=== PATIENT | male | born 1960 | race Caucasian/White ===

== ENCOUNTER 2021-04-28 09:55 | Day surgery (SDC) | payer BC ==
[2021-04-28 09:47] LABS: Absolute Lymphocytes (CBC) 2.2 K/uL (0.7-4.9); Hematocrit 41.8 % (39.6-49.0); Lymphocytes % 33.9 % (15.3-44.8); MPV 7.5 fL (7.6-11.3); RBC Red Blood Cell Count 4.94 M/uL (4.33-5.43)
[2021-04-28 09:50] LABS: Protime INR 1.02
[2021-04-28 09:59] LABS: BUN Blood Urea Nitrogen 16 mg/dL (7-18); Bicarbonate 28 mmol/L (21-32); Glucose Level 96 mg/dL (74-106); Potassium 4.3 mmol/L (3.5-5.1); Sodium Level 141 mmol/L (136-145)
--- NOTE | 2021-04-28 10:08 | RAD REPORT ---
EXAM DESCRIPTION: RAD - Chest Pa And Lat (2 Views) - 04/28/2021 9:54 am CLINICAL HISTORY: PreOp COMPARISON: Elbow Left Wo Cont dated 04/21/2021 FINDINGS: Lines: None. Lungs: Prominent lung markings medially within the right lung base favored chronic though no priors a re available for comparison. No edema identified. No consolidative airspace disease. Pleural: No significant pleural effusions or pneumothorax. Cardiac: The heart size is within normal limits. Bones: No acute fractures. Other: IMPRESSION: No definite acute cardiopulmonary disease.
[2021-04-28] MEDS ORDERED: Ringers Lactate 1,000 ML IV ONE (10:59)
[2021-04-28] MEDS ORDERED: CEFAZOLIN/SWI 1gm 1 GM/10 ML SYR ONE (11:00)
[2021-04-28] MEDS ORDERED: BUPIVACAINE 0.5% PF 10 ML VIAL ONE (11:36)
[2021-04-28] MEDS ORDERED: KETOROLAC 30 MG/ML INJ ONE (11:59)
[2021-04-28] MEDS ORDERED: MIDAZOLAM HCL 2 MG/2 ML INJ ONE (11:59)
[2021-04-28] MEDS ORDERED: LIDOCAINE 2% MPF 5 ML VIAL ONE (11:59)
[2021-04-28] MEDS ORDERED: ONDANSETRON 4 MG/2 ML VIAL ONE (11:59)
[2021-04-28] MEDS ORDERED: dexAMETHasone 10 MG/ML VIAL ONE (11:59)
[2021-04-28] MEDS ORDERED: FENTANYL CITR 100 MCG/2 ML ONE ×2 (11:59→14:09)
[2021-04-28] MEDS ORDERED: propofoL 200 MG/20 ML VIAL IV ONE (11:59)
[2021-04-28] MEDS ORDERED: ROCURONIUM 50 MG/5 ML VIAL IV ONE (12:00)
[2021-04-28] MEDS ORDERED: EPHEDRINE SULF 50 MG/ML VIAL ONE (13:11)
[2021-04-28] MEDS ORDERED: GLYCOPYRROLATE 0.2 MG/ML SYR ONE (13:11)
[2021-04-28] MEDS: Ringers Lactate 1,000 ML IV ONE ×2 (13:23→13:47)
--- NOTE | 2021-04-28 14:38 | EKG ---
Test Date: 2021-04-28 Test Time: 09:01:26 [employer]ater: ANDRAE MEASUREMENT RESULTS: Intervals: Rate: 52 CT: 152 QRSD: 92 QT: 448 QTc: 416 [place]: P: 5 CT: 152 QRS: 75 T: 46 INTERPRETIVE STATEMENTS: Sinus bradycardia Otherwise normal ECG No previous ECG available for comparison Electronically Signed On 04-28-21 14:38:22 CDT by Jake Moreno
--- NOTE | 2021-04-28 15:13 | P.BOP ---
Preoperative diagnosis: left distal biceps tendon rupture Postoperative diagnosis: same Primary procedure: left distal biceps tendon repair Feeder Driver: NONE,NONE Estimated blood loss: 10 cc Specimen: none Findings: see dictation Anesthesia: General Complications: None Implants: Arthrex biceps button with 7 x 10 mm biotenodesis screw Fluids & blood products: per anesthesia record Transferred to: Recovery Room Condition: Good
[2021-04-28 15:52] VITALS: BP 120/63; TEMP 97.9; O2SAT 97
--- NOTE | 2021-04-28 16:03 | RAD REPORT ---
EXAM DESCRIPTION: RAD - Elbow Left 2 View - 04/28/2021 3:34 pm CLINICAL HISTORY: s/p biceps tendon repair Pain COMPARISON: Elbow Left Wo Cont dated 04/21/2021 FINDINGS: Small metallic clip is seen near the radial tuberosity. Mild soft tissue swelling postsurg ical subcutaneous gas is present. No unexpected immediate postoperative finding.
[2021-04-28] MEDS ORDERED: HYDROCODONE/APAP 5/325 MG TAB ONE (16:23)
--- NOTE | 2021-04-28 19:23 | RAD REPORT ---
EXAM DESCRIPTION: RAD - Fluoroscopy <1 Hour - 04/28/2021 7:11 pm CLINICAL HISTORY: LT BICEP REPAIR COMPARISON: No comparisons FINDINGS: Fluoroscopy time: 0.1 minutes
--- NOTE | 2021-04-29 23:04 | OP ---
Date of Procedure: 04/28/2021 Surgeon: Russell Reed MD Preoperative Diagnosis: Left distal biceps tendon rupture. Postoperative Diagnosis: Left distal biceps tendon rupture. Procedure Performed: Left distal biceps tendon repair. Anesthesia: General endotracheal. Fluids: Per Anesthesia record. Estimated Blood Loss: 10 cc. Complications: None. Implant: An Arthrex BicepsButton with a 7 x 10 mm Bio-Tenodesis screw. Indication For Procedure: Adam is a 60-year-old male who presents to clinic with signs, symptoms, and MRI findings consistent with a left distal biceps tendon rupture. I discussed with the patient at length risks and benefits associated with operative and nonoperative treatment. He expressed understanding and elected to proceed with the operative treatment. Description Of Procedure: After informed consent was obtained, the patient was identified in the preoperative holding area. The left upper extremity was marked. The patient was then brought back to the operating room, returned to the operating table in the supine fashion, placed under general endotracheal anesthesia. The left upper extremity was then prepped and draped in usual sterile fashion. A time-out was initiated. The correct patient and procedure were confirmed and identified. The patient did receive his preoperative prophylactic antibiotics. The left upper extremity was then prepped and draped in usual sterile fashion. A time-out was initiated. Correct patient and procedure were confirmed and identified. Approximately an 8 cm curvilinear incision was made beginning at the radial tuberosity and coming up medially just proximal to the antecubital fossa. Dissection was first taken down evaluating the damaged biceps tendon. The patient was noted to have significant fraying of the distal biceps tendon. The tendon was partially intact and attached to the bicipital tuberosity. These remaining fibers were then released using an elevator as well as Metzenbaum. A crossing vein was noted at the area of insertion and it was tied using a silk tie and a small branch was released to aid with exposure. The distal tendon stump was then debrided for any unhealthy tissue. It was noted that there was minimal tendon stump available secondary to the diseased aspect of the distal tendon. The distal tendon stump was then whipstitched using a FiberLoop over a course of 2.5 cm. It was marked for about 1 cm distal at the end and a guide pin was then placed on the radial tuberosity and confirmed using fluoroscopy. A guide pin was then passed through the proximal radius in a bicortical fashion with keeping the forearm in supination to protect the PIN at all times. It was just followed by 7.5 mm reamer after this tendon was measured. An Arthrex BicepsButton was then placed over the sutures and passed through the far cortex and flipped. The suture was then pulled to dock the tendon into the socket. There was good overall fit of the biceps tendon within the socket of the radial tuberosity. To add additional fixation, a 7 x 10 mm Bio-Tenodesis screw was placed with good overall bite. The suture was then tied over the screw and cut. The wound was then irrigated thoroughly with normal saline. The patient was noted to be able to bring the arm into 70 degrees off extension. Subcutaneous tissue was approximated using a 2-0 Vicryl. Skin was approximated using a 4-0 Monocryl. The patient was placed in a posterior splint and awakened, was transferred to PACU in stable condition. He was noted to have full functionality of his PIN nerve postoperatively with positive firing of his EPL. Postoperative Plan: The patient will be nonweightbearing in his left upper extremity. He will follow up in 2 weeks for wound check and placement in an elbow brace. We will slowly begin range of motion exercises to obtain full extension at approximately 6 weeks postop given his significant tendinopathy and mild tension of the repair. CV/MODL Voice ID: [id number] Report ID: [id number]
== END 2021-04-28 16:33 | disposition home or self-care (01) ==
LOC: OR 09:55
PROVIDERS: ATTEND Orthopaedic Surgery Sports Medicine
PROC: 0LQ40ZZ Repair Left Upper Arm Tendon, Open Approach (ICD-10-PCS; principal; 2021-04-28 10:30)
DX: S46.212A Strain of muscle, fascia and tendon of other parts of biceps, left arm, initial encounter (principal); M89.8X2 Other specified disorders of bone, upper arm; Z20.822 Contact with and (suspected) exposure to COVID-19
CPT/HCPCS: 93005; 85025; 80048; 36415; 85610; 85730; 71046; 76000; 73070; 24341; U0003; J2704; J2250; J3010 ×2; J1100; J0690; J7120 ×2; J2405